=== PATIENT | female | born 1955 | race African-American/Black ===

== ENCOUNTER 2020-01-26 14:01 | Emergency (ER) | payer MEDICAID ==
[~2020-01-26] VITALS: Ht 162.6 cm; Wt 107.0 kg
[2020-01-26] MEDS ORDERED: HYDROCODONE/ACETAMINOPHEN 5/325MG TABLET PO STA (16:15)
[2020-01-26 17:23] VITALS: BP 158/76
== END 2020-01-26 17:23 | disposition home or self-care (01) ==
LOC: ER 14:01
DX: S80.01XA Contusion of right knee, initial encounter (principal); M25.551 Pain in right hip; J45.909 Unspecified asthma, uncomplicated; I10 Essential (primary) hypertension; E11.9 Type 2 diabetes mellitus without complications; Z88.6 Allergy status to analgesic agent; W01.0XXA Fall on same level from slipping, tripping and stumbling without subsequent striking against object, initial encounter; Y93.89 Activity, other specified; Y92.89 Other specified places as the place of occurrence of the external cause; Y99.8 Other external cause status
CPT/HCPCS: 73502; 73562; 99284